=== PATIENT | female | born 1990 | race Asian ===

== ENCOUNTER 2019-11-23 22:02 | Emergency (ER) | payer OTHER ==
[~2019-11-23] VITALS: Ht 170.2 cm; Wt 76.4 kg
[2019-11-23] MEDS ORDERED: IBUPROFEN 600 MG TABLET PO ONE (22:30)
[2019-11-23 23:12] LABS: INFLUENZA TYPE A POSITIVE FOR TYPE A (NEGATIVE); INFLUENZA TYPE B NEGATIVE FOR TYPE B (NEGATIVE)
[2019-11-23 23:53] VITALS: BP 128/77
== END 2019-11-23 23:50 | disposition home or self-care (01) ==
LOC: EMS 22:02
DX: J10.1 Influenza due to other identified influenza virus with other respiratory manifestations (principal); Z91.013 Allergy to seafood; Z20.828 Contact with and (suspected) exposure to other viral communicable diseases
CPT/HCPCS: 87635; 87804

== ENCOUNTER 2020-03-15 14:20 | Emergency (ER) | payer OTHER ==
[~2020-03-15] VITALS: Ht 170.2 cm; Wt 77.3 kg
[2020-03-15 14:42] VITALS: BP 128/78
== END 2020-03-15 14:35 | disposition home or self-care (01) ==
LOC: EMS 14:21
DX: Z03.818 Encounter for observation for suspected exposure to other biological agents ruled out (principal)
CPT/HCPCS: 99283; U0003